=== PATIENT | female | born 1995 | race Hispanic/Latino ===

== ENCOUNTER 2018-07-02 13:24 | Emergency (ER) | payer OTHER ==
[2018-07-02] MEDS: METHOCARBAMOL 500 MG TAB PO (15:31)
[2018-07-02] MEDS: PERCOCET 5MG/325MG TAB PO (15:32)
[2018-07-02] MEDS: KETOROLAC 60 MG/2 ML VIAL (J1885) IM (15:32)
[2018-07-02 15:44] LABS: KETONE, URINE AUTO RFX NEGATIVE (NEGATIVE); NITRITE, URINE AUTO RFX NEGATIVE (NEGATIVE); RBC, URINE AUTO RFX 2 /HPF (0-3); SPECIFIC GRAVITY UR AUTO RFX 1.016 (1.002-1.035); SQUAM EPITHELIAL CELL UR AURFX 0 /HPF (0-6)
[2018-07-02 15:46] LABS: CONTROL LINE UCG INT CTR LINE PRESENT; URINE PREG TEST NEGATIVE (NEGATIVE)
[2018-07-02 15:47] LABS: LEUKOCYTE ESTERASE UR AUTO RFX 2+ (NEGATIVE); WBC, URINE AUTO RFX 92 /HPF (0-3)
[2018-07-02] MEDS: CIPROFLOXACIN 500 MG TAB PO (16:27)
== END 2018-07-02 16:31 | disposition home or self-care (01) ==
LOC: M ED 13:24
DX: S39.012A Strain of muscle, fascia and tendon of lower back, initial encounter (principal); X58.XXXA Exposure to other specified factors, initial encounter; Y92.89 Other specified places as the place of occurrence of the external cause; N30.01 Acute cystitis with hematuria
CPT/HCPCS: J1885